=== PATIENT | male | born 1995 | race Caucasian/White ===

== ENCOUNTER 2017-07-29 12:45 | Emergency (ER) | payer OTHER ==
[2017-07-29] MEDS ORDERED: VANCOMYCIN/NS 1 GM/250 ML 1 GM/250 ML BAG IV ONE (14:41)
[2017-07-29] MEDS ORDERED: NACL 0.9% 1000 ML 1,000 ML IV ONE (14:41)
[2017-07-29] MEDS ORDERED: ZOFRAN IV ONE (14:49)
[2017-07-29] MEDS ORDERED: MORPHINE IV ONE (14:49)
--- NOTE | 2017-07-29 14:57 | Emergency Department Report ---
ED General Adult HPI - General Chief complaint: Extremity Injury, Upper Stated complaint: LEFT ARM SWOLLEN, SUTURE REMOVAL Time Seen by Provider: 07/29/17 14:24 Source: patient Mode of arrival: Ambulatory Limitations: No Limitations - History of Present Illness Initial comments: pt is a 22 y/o south af[place] speaking male, (heater helper used for this case Estephania EM) pt presents for left arm pain and swelling with decreased rom, s/p lacertion with box cuter 8 days ago pt seen at urgent care center for suture repair but reports decreased rom weakness that is worsening , pt denies fever or chills, endorses 8/10 pain and swelling pt states unable to hold tools in hand. Onset/Timin -: days(s) Location: upper extremity Radiation: distal Severity scale (0 -10): 7 Quality: aching, sharp Consistency: constant Improves with: none Worsens with: movement Associated Symptoms: weakness (forearm and arm weakness ) Treatments Prior to Arrival: none - Related Data Previous Rx's Medication Instructions Recorded Last Taken Type Acetaminophen/Codeine [Tylenol 1 tab PO Q6H PRN #20 tab 07/29/17 Unknown Rx /Codeine # 3 tab] Cyclobenzaprine [Flexeril] 10 mg PO TID PRN #30 tablet 07/29/17 Unknown Rx Naproxen 500 mg PO BID PRN #60 tablet 07/29/17 Unknown Rx Allergies Allergy/AdvReac Type Severity Reaction Status Date / Time No Known Allergies Allergy Unverified 07/29/17 12:56 ED Review of Systems ROS: Stated complaint: LEFT ARM SWOLLEN, SUTURE REMOVAL Other details as noted in HPI Constitutional: denies: chills, fever Eyes: denies: eye pain, eye discharge, vision change ENT: denies: ear pain, throat pain Respiratory: denies: cough, shortness of breath, wheezing Cardiovascular: denies: chest pain, palpitations Endocrine: no symptoms reported Gastrointestinal: denies: abdominal pain, nausea, diarrhea Genitourinary: denies: urgency, dysuria Musculoskeletal: myalgia (left forearm) Skin: denies: rash, lesions Neurological: weakness (left forearm ) Psychiatric: denies: anxiety, depression Hematological/Lymphatic: denies: easy bleeding, easy bruising ED Past Medical Hx - Past Medical History Previous Medical History?: Yes Additional medical history: Left arm lac - Surgical History Past Surgical History?: No - Social History Smoking Status: Current Every Day Smoker Substance Use Type: Alcohol - Medications Home Medications: Home Medications Medication Instructions Recorded Confirmed Last Taken Type Acetaminophen/Codeine [Tylenol 1 tab PO Q6H PRN #20 tab 07/29/17 Unknown Rx /Codeine # 3 tab] Cyclobenzaprine [Flexeril] 10 mg PO TID PRN #30 tablet 07/29/17 Unknown Rx Naproxen 500 mg PO BID PRN #60 tablet 07/29/17 Unknown Rx ED Physical Exam - General Limitations: No Limitations General appearance: alert, in no apparent distress - Head Head exam: Present: atraumatic, normocephalic - Eye Eye exam: Present: normal appearance - ENT ENT exam: Present: mucous membranes moist - Neck Neck exam: Present: normal inspection - Respiratory Respiratory exam: Present: normal lung sounds bilaterally. Absent: respiratory distress, wheezes, stridor, chest wall tenderness - Cardiovascular Cardiovascular Exam: Present: regular rate, normal rhythm, normal heart sounds. Absent: systolic murmur, diastolic murmur, rubs, gallop - GI/Abdominal GI/Abdominal exam: Present: soft, normal bowel sounds - Rectal Rectal exam: Present: deferred - Extremities Exam Extremities exam: Present: tenderness (left forearm ), normal capillary refill. Absent: full ROM, joint swelling, calf tenderness - Expanded Upper Extremity Exam Left Forearm Wrist exam: Present: tenderness (left forearm flexion and extension weakness 3/5), swelling, laceration (left anterior mid forearm laceration repair x 7 sutures wedges approximated no drainage. no erythema, noted swelling nad pain to touch ), tenderness over anatomical snuff box, pain with axial thumb loading. Absent: abrasion, ecchymosis, deformity, crepidus, dislocation, erythema Hand Wrist exam: Present: tenderness (generalized ), swelling. Absent: abrasion , laceration, ecchymosis, deformity, crepidus, dislocation, erythema, amputation , nail avulsion, subungual hematoma Neuro motor exam: Absent: wrist extension intact, thumb opposition intact, thumb IP flexion intact, thumb adduction intact Neurosensory exam: Present: 2-point discrimination, ulnar nerve intact. Absent : radial nerve intact Vascular: Present: normal capillary refill, radial pulse, brachial pulse, ulnar pulse. Absent: vascular compromise, Pallo, pulse deficit radial art, pulse deficit brachial art - Back Exam Back exam: Present: normal inspection, full ROM. Absent: tenderness - Neurological Exam Neurological exam: Present: alert, oriented X3, normal gait, motor sensory deficit. Absent: reflexes normal (left brachialradius weakness +1, flexor and extensor weakness ) - Expanded Neurological Exam Expanded Patient oriented to: Present: person, place, time Speech: Present: fluid speech Cranial nerves: EOM's Intact: Normal, Gag Reflex: Normal, Tongue Deviation: Normal, Nystagmus: Normal, Facial Sensation: Normal Cerebellar function: Finger to Nose: Normal Upper motor neuron: Piyush Neglect: Normal, Pronator Drift: Normal, Sensory Extinction: Normal Sensory exam: Upper Extremity Light Touch: Normal, Upper Extremity Pin Prick: Normal, Upper Extremity Temperature: Abnormal Left, UE 2 Point Discrimination: Normal Motor strength exam: RUE: 5, LUE: 3, RLE: 5, LLE: 5 DTR: bicep (R): 2+, bicep (L): 1+, tricep (R): 2+, tricep (L): 1+, knee (R): 2+ , knee (L): 2+, ankle (R): 2+, ankle (L): 2+ Best Eye Response (Shilpa): (4) open spontaneously Best Motor Response (Shilpa): (6) obeys commands Best Verbal Response ([place]): (5) oriented Shilpa Total: 15 - Psychiatric Psychiatric exam: Present: normal affect, normal mood - Skin Skin exam: Present: warm, dry, intact, normal color. Absent: rash ED Course Vital Signs 07/29/17 07/29/17 12:56 19:01 Temperature 98.5 F 97.9 F Pulse Rate 94 H 64 Respiratory 20 24 Rate Blood Pressure 135/90 Blood Pressure 119/56 [Left] O2 Sat by Pulse 99 99 Oximetry ED Medical Decision Making - Lab Data Result diagrams: 07/29/17 15:52 07/29/17 17:50 Laboratory Tests 07/29/17 07/29/17 07/29/17 15:51 15:52 15:53 WBC 8.1 RBC 5.36 H Hgb 16.4 H Hct 49.0 H MCV 91 MCH 31 MCHC 34 RDW 12.4 L Plt Count 226 Lymph % (Auto) 29.3 [place] % (Auto) 7.6 H Eos % (Auto) 2.0 Baso % (Auto) 0.3 Lymph # 2.4 [place] # 0.6 Eos # 0.2 Baso # 0.0 Seg Neutrophils % 60.8 Seg Neutrophils # 4.9 ESR 1 Lactic Acid 1.60 C-Reactive Protein 0.40 Laboratory Tests 07/29/17 07/29/17 07/29/17 15:51 15:52 15:53 WBC 8.1 RBC 5.36 H Hgb 16.4 H Hct 49.0 H MCV 91 MCH 31 MCHC 34 RDW 12.4 L Plt Count 226 Lymph % (Auto) 29.3 [place] % (Auto) 7.6 H Eos % (Auto) 2.0 Baso % (Auto) 0.3 Lymph # 2.4 [place] # 0.6 Eos # 0.2 Baso # 0.0 Seg Neutrophils % 60.8 Seg Neutrophils # 4.9 ESR 1 Sodium Potassium Chloride Carbon Dioxide Anion Gap BUN Creatinine Estimated GFR BUN/Creatinine Ratio Glucose Lactic Acid 1.60 Calcium Total Bilirubin AST ALT Alkaline Phosphatase C-Reactive Protein 0.40 Total Protein Albumin Albumin/Globulin Ratio 07/29/17 17:50 WBC RBC Hgb Hct MCV MCH MCHC RDW Plt Count Lymph % (Auto) [place] % (Auto) Eos % (Auto) Baso % (Auto) Lymph # [place] # Eos # Baso # Seg Neutrophils % Seg Neutrophils # ESR Sodium 140 Potassium 4.1 Chloride 103.2 Carbon Dioxide 23 Anion Gap 18 BUN 13 Creatinine 0.7 L Estimated GFR > 60 BUN/Creatinine Ratio 19 Glucose 86 Lactic Acid Calcium 9.1 Total Bilirubin 0.40 AST 35 ALT 99 H Alkaline Phosphatase 83 C-Reactive Protein Total Protein 6.9 Albumin 4.1 Albumin/Globulin Ratio 1.5 - Radiology Data Radiology results: report reviewed, image reviewed normal xray no fracture no soft tissue abnormality of forear, hand no fracture moderate soft tissue swelling, - Medical Decision Making pt is a 22 y/o [place] speaking male, (heater helper used for this case Estephania EM) pt presents for left arm pain and swelling with decreased rom, s/p lacertion with box cuter 8 days ago to left volar mid forearm, with initial weakness and flexion extension abnormality, pt seen at urgent care center for suture repair but reports decreased rom weakness that is worsening , pt denies fever or chills , endorses 8/10 pain and swelling pt states unable to hold tools in hand. pt appears uncomfortable, noted left forearm and hand swelling weakness with rotation flexion and extension. 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 Parker ED Attending recommendation noted, Plan: Xray forearm, elbow, hand, cmp,cbc, crp, sed rate, lactic, Vancomycin, Zosyn, plan for possible transfer to [facility] for Tendon/Nerve injury Left Forearm/ Capartment Syndrome/ Cellulitis left Forearm, infected Laceration , discussed treatment plan with patient and family via heater helper, Estephania EM, pt and family verbalized agreement and understanding of same. xray: normal no gas, no fracture soft tissue swelling left hand, labs normal : Lactic, CRPk, Sed Rate, CMP, and CBC, rom and sensation improved with pain medication given in ed, exam at this time: left hand swelling cashier ticket selling 4/5 left , sensations improved, flexion 4/5 to opposition, extension 3/5 left hand, which reproduces mild forearm tenderness , wrist flexion and extension intact, left elbow flexion and extension improved, rad pulse +2, lead systems developer <3 sec bilat. there is no fever no tachycardia no tachypnea no n/v no left arm erythema no ecchymosis no crepitus this is not cellulitis or sepsis,no extensor compartment syndrome as fingers full extend and flex, there in no forarm crepitus , pain is generalized with movement, more likely tendon injury to forearm. 1728: [facility] paged , advised Hand Surgery will call back for consult possible transfer awaiting return call from [facility]. 1810: spoke with [facility] Dr. Ledezma recommendation : outpatient follow up vice transfer, with [facility] pt will call tomorrow to setup appointment, , will dc to self with wrist splint , sling, prn pain medication, continue abx as rx. sutures x 7 intact, pt will return to emergency in 2-3 days or Hand Surgery follow up for dc of same, pt verbalized agreement and understanding of discharge plan. Critical care attestation.: If time is entered above; I have spent that time in minutes in the direct care of this critically ill patient, excluding procedure time. ED Disposition Clinical Impression: Injury of forearm muscle or tendon Qualifiers: Encounter type: initial encounter Laterality: left Qualified Code(s): S56.902A - Unspecified injury of unspecified muscles, fascia and tendons at forearm level , left arm, initial encounter Disposition: [id number]/TX-70 ANOTHER TYPE HLTHCARE Is pt being admited?: No Does the pt Need Aspirin: No Condition: Good Instructions: Laceration (ED) Additional Instructions: follow up with [facility] call tomorrow to set up appointment [phone], return to emergency if symptoms worsen. Prescriptions: Acetaminophen/Codeine [Tylenol /Codeine # 3 tab] 1 tab PO Q6H PRN #20 tab PRN Reason: severe pain Cyclobenzaprine [Flexeril] 10 mg PO TID PRN #30 tablet PRN Reason: Muscle Spasm Naproxen 500 mg PO BID PRN #60 tablet PRN Reason: pain Referrals: PRIMARY CARE,MD [Primary Care Provider] - 3-5 Days Forms: Work/School Release Form(ED) Time of Disposition: 18:52 Print Language: J[place]
--- NOTE | 2017-07-29 15:31 | XRay Report ---
LEFT FOREARM: History: Pain and swelling. AP and lateral views of the forearm demonstrate normal mineralization and contours for this patient's age. No destructive changes are noted and the adjacent soft tissues are normal. IMPRESSION: Normal left forearm.
--- NOTE | 2017-07-29 15:32 | XRay Report ---
LEFT HAND, 2 views: History: Pain and swelling. There is diffuse soft tissue swelling. Normal bone mineralization. No acute osseous findings or joint pathology is identified. IMPRESSION: Soft tissue swelling. No acute bony injury is appreciated.
[2017-07-29] MEDS ORDERED: ZOSYN/NS 4.5GM/100ML 4.5 GM/100 ML VIAL IV ONE (16:00)
[2017-07-29 16:07] LABS: Basophils % (Auto) 0.3 % (0.0-1.8); Eosinophils # (Auto) 0.2 K/mm3 (0.0-0.4); Hemoglobin 16.4 gm/dl (11.8-15.2); Lymphocytes # (Auto) 2.4 K/mm3 (1.2-5.4); Lymphocytes % (Auto) 29.3 % (13.4-35.0); Mean Corpuscular HGB Conc 34 % (32-34); Mean Corpuscular Hemoglobin 31 pg (28-32); Mean Corpuscular Volume 91 fl (84-94); Monocytes # (Auto) 0.6 K/mm3 (0.0-0.8); Monocytes % (Auto) 7.6 % (0.0-7.3); Platelet Count 226 K/mm3 (140-440); Red Blood Count 5.36 M/mm3 (3.65-5.03); Red Cell Distribution Width 12.4 % (13.2-15.2)
[2017-07-29 16:25] LABS: Erythrocyte Sedimentation Rate 1 mm/Hr (0-20)
[2017-07-29 18:21] LABS: Alanine Aminotransferase 99 units/L (7-56); Albumin 4.1 g/dL (3.9-5); BUN/Creatinine Ratio 19; Blood Urea Nitrogen 13 mg/dL (9-20); Calcium 9.1 mg/dL (8.4-10.2); Hemolysis Index 19
[2017-07-29 19:02] VITALS: BP 119/56
== END 2017-07-29 19:17 | disposition other institution (70) ==
LOC: ED 12:45
DX: S56.902A Unspecified injury of unspecified muscles, fascia and tendons at forearm level, left arm, initial encounter (principal); F17.200 Nicotine dependence, unspecified, uncomplicated; F10.10 Alcohol abuse, uncomplicated
CPT/HCPCS: 29125; 36415; 73090; 73120; 80053; 82140; 85025; 85652; 86140; 87040; 96365; 96367; 96375; 99285; J2270; J2405; J2543; J3370; J7030

== ENCOUNTER 2017-08-08 11:15 | Emergency (ER) | payer SELFPAY ==
[2017-08-08 11:26] VITALS: BP 135/85
== END 2017-08-08 11:21 | disposition left against medical advice (07) ==
LOC: ED 11:15
DX: Z53.21 Procedure and treatment not carried out due to patient leaving prior to being seen by health care provider (principal)